=== PATIENT | female | born 1985 | race Caucasian/White ===

== ENCOUNTER → 2017-01-17 | Outpatient (CLI) | payer MEDICAID ==
--- NOTE | 2017-01-17 20:00 | US ---
EXAMINATION TYPE: US OB >= 14 wk fetus DATE OF EXAM: 01/17/2017 COMPARISON: None CLINICAL HISTORY: 31-year-old female with Cramping TECHNIQUE: Transabdominal (TA) FINDINGS: GESTATIONAL AGE / DATING Physician Established: (18 weeks/1 days) EDC: 06/19/16 Dates by LMP: (18 weeks/ 1 days) EDC: 06/19/16 Dates by First Scan: No previous this is first scan ( Dates by Current Scan: (18 weeks/1 days) EDC: 06/19/16 SURVEY IUP: Single PLACENTA: Posterior PREVIA: No Previa VINCE: 12.5 cm CERVICAL LENGTH (transabdominal: norm > 3.0cm): 4.0 cm BIOMETRY PRESENTATION: Breech LIE: Longitudinal BPD: 4.1 cm 18 weeks / 3 days HC: 14.7 cm 17 weeks / 6 days AC: 12.8 cm 18 weeks / 2 days FL: 2.8 cm 18 weeks / 3 days ESTIMATED WEIGHT IN GRAMS: 235 grams ESTIMATED WEIGHT IN LBS/OZ: 0 lbs. 8 oz. WEIGHT PERCENTAGE BASED ON ESTABLISHED DATES: 57% HC/AC: 1.2 FL/AC: 21.8 HEART RATE: 135 bpm RHYTHM: Normal Dry [employer] Operator notes: Placenta shows hypoechoic 3.3 x 1.7 x 2.4, possible chorioangioma. IMPRESSION: 1. Single live intrauterine with estimated gestational age of 18 weeks 1 day by LMP. Curren t ultrasound biometry is exactly concordant, placing the gestation at the 57th percentile for weight. 2. A 3.3 cm focal hypoechoic area within the placenta. A chorioangioma is in the differential. Follow -up as clinically indicated. 3. Complete survey recommended at 18-20 weeks.
== END | disposition home or self-care (01) ==
LOC: RADUSMAIN 14:18
PROVIDERS: ATTEND Family Medicine
DX: O99.89 Other specified diseases and conditions complicating pregnancy, childbirth and the puerperium (principal); R10.2 Pelvic and perineal pain; Z3A.18 18 weeks gestation of pregnancy
CPT/HCPCS: 76805

== ENCOUNTER 2017-03-25 19:13 | Outpatient (CLI) | payer MEDICAID ==
[2017-03-25 19:56] VITALS: BP 129/70; PULSE 93; RESP 16; TEMP 97.3
--- NOTE | 2017-04-22 04:27 | P.MSEPDOC ---
Presenting Problems - Arrival Data Date of Arrival on Unit: 03/25/17 Time of Arrival on Unit: 19:13 Mode of Transport: Ambulatory - Complaint OB-Reason for Admission/Chief Complaint: Rule Out PROM Medical History - Information : 3 Para: 1 Term: 1 : 0 Abortions: Spontaneous or Elective: 1 Number of Living Children: 1 - Gestational Age Gestational Age by DWAYNE (wks/days): 27 Weeks and 5 Days Review of Systems - Review of Systems Constitutional: No problems Breast: No problems ENT: No problems Cardiovascular: No problems Respiratory: No problems Gastrointestinal: No problems Genitourinary: No problems Musculoskeletal: No problems Neurological: No problems Skin: No problems Vital Signs - Temperature Temperature: 97.3 F Temperature Source: Temporal Artery Scan - Pulse Right Pulse Rate: 93 Pulse Assessment Method: Pulse Oximetry - Respirations Respiratory Rate: 16 Oxygen Delivery Method: Room Air O2 Sat by Pulse Oximetry: 99 - Blood Pressure Right Arm Blood Pressure: 129/70 Blood Pressure Mean: 89 Blood Pressure Source: Automatic Cuff Medical Screen Scoring (Pre) - Cervical Exam Dilation: Exam Deferred Effacement: Exam Deferred Membranes: Intact - Uterine Contractions Frequency: N/A Duration: N/A Intensity: N/A - Maternal Vital Signs Maternal Temperature: N/A Maternal Blood Pressure: N/A Signs of Preeclampsia: N/A Maternal Respirations: N/A - Pain Assessment Pain Scale Used: Numeric (1 - 10) Pain Intensity: 0 Pain Management Goal: 0 - Maternal Trauma Maternal Trauma: N/A - Assessment Baseline FHR: 145 Heart Rate - NICHD Category: Category I (Normal) = 0 NST: Reactive Position: N/A Station: N/A - Total Score Total Score (Pre): 0 - Level of Risk Level of Risk: N/A Physician Notification (Pre) - Physician Notified Physician Notified Date: 03/25/17 Physician Notified Time: 19:41 Physician/Practitioner Notifed:: Dr. Roman Spoke With: Dr. Roman New Order Received: No - Notification Comment Comment: Pt cleared for discharge home at this time. Pt to keep next appointment in office and return with any worsening symptoms or other concerns. Disposition - Disposition OB Disposition: Discharge to home Discharge Date: 03/25/17 Discharge Time: 19:44 I agree with the RN Medical Screening Exam: Yes Risk & Benefit of care provided described in d/c instruction: Yes Diagnosis: FALSE LABOR, UNSPECIFIED
== END 2017-03-25 19:44 | disposition home or self-care (01) ==
LOC: FBPOP 19:13
PROVIDERS: ATTEND Obstetrics & Gynecology
DX: O47.9 False labor, unspecified (principal); Z3A.27 27 weeks gestation of pregnancy
CPT/HCPCS: 84112; 99213

== ENCOUNTER 2017-04-14 19:06 | Outpatient (CLI) | payer MEDICAID ==
[2017-04-14 23:15] VITALS: BP 127/60; PULSE 99; RESP 18; TEMP 98.5
--- NOTE | 2017-04-21 11:51 | P.MSEPDOC ---
Presenting Problems - Arrival Data Date of Arrival on Unit: 04/14/17 Time of Arrival on Unit: 19:06 Mode of Transport: Ambulatory - Complaint OB-Reason for Admission/Chief Complaint: Vaginal Bleeding Comment: Comment: pt presents with complaints of spotting for last couple hours at work. downstairs in er as rn. states pinkish mucus when wiping and on pad. noting bright red. nothing saturating pantyliners.denies pain. states called dr office yesterday due to suspected yeast infection and was advised to start monistat 3 day supository course last night. states about 30 min after suppos placed vaginaly had severe burning in vagina. discussed how this can be normal effect with med if tissue is irritated from infection Medical History - Information : 3 Para: 1 Term: 1 : 0 Abortions: Spontaneous or Elective: 1 Number of Living Children: 1 - Gestational Age Gestational Age by DWAYNE (wks/days): 30 Weeks and 4 Days Review of Systems - Review of Systems Constitutional: No problems Breast: No problems ENT: No problems Cardiovascular: No problems Respiratory: No problems Gastrointestinal: No problems Musculoskeletal: No problems Neurological: No problems Skin: No problems Comment: vaginal burning last night, spotting and yeast infection as noted above Vital Signs - Temperature Temperature: 98.5 F Temperature Source: Oral - Pulse Right Pulse Rate: 99 Pulse Assessment Method: Pulse Oximetry - Respirations Respiratory Rate: 18 Oxygen Delivery Method: Room Air O2 Sat by Pulse Oximetry: 99 - Blood Pressure Right Arm Blood Pressure: 127/60 Blood Pressure Mean: 82 Blood Pressure Source: Automatic Cuff Medical Screen Scoring (Pre) - Cervical Exam Dilation: 0 cm = 0 Membranes: Intact - Uterine Contractions Frequency: N/A Duration: N/A Intensity: N/A - Maternal Vital Signs Maternal Temperature: N/A Maternal Blood Pressure: N/A Signs of Preeclampsia: N/A Maternal Respirations: N/A - Pain Assessment Pain Scale Used: Numeric (1 - 10) Pain Intensity: 0 Pain Management Goal: 0 - Maternal Trauma Maternal Trauma: N/A - Assessment Baseline FHR: 140 Heart Rate - NICHD Category: Category I (Normal) = 0 NST: Reactive Position: N/A - Total Score Total Score (Pre): 0 - Level of Risk Level of Risk: Low (0-5) Physician Notification (Pre) - Physician Notified Physician Notified Date: 04/14/17 Physician Notified Time: 20:25 Physician/Practitioner Notifed:: Dr Quinn New Order Received: Yes (dischager if cervix closed) - Notification Comment Comment: cervix determined closed with exam. Disposition - Disposition OB Disposition: Discharge to home Discharge Date: 04/14/17 Discharge Time: 20:45 I agree with the RN Medical Screening Exam: Yes Risk & Benefit of care provided described in d/c instruction: Yes Diagnosis: SPOTTING COMPLICATING , THIRD TRIMESTER
== END 2017-04-14 20:45 | disposition home or self-care (01) ==
LOC: FBPOP 19:06
PROVIDERS: ATTEND Obstetrics & Gynecology
DX: O26.853 Spotting complicating pregnancy, third trimester (principal); Z3A.30 30 weeks gestation of pregnancy
CPT/HCPCS: 59025; 99213

== ENCOUNTER 2017-06-11 03:35 | Inpatient (IN) | payer MEDICAID ==
[2017-06-11] MEDS ORDERED: CARBOPROST TROMETHAMINE 250 MCG/ML 1 ML AMP IM PRN (03:49)
[2017-06-11] MEDS ORDERED: OXYTOCIN 10 UNIT/ML 1 ML VIAL IM PRN (03:49)
[2017-06-11] MEDS ORDERED: LIDOCAINE 1% (PF) 10 MG/ML (30 ML SDV) SQ PRN (03:49)
[2017-06-11] MEDS ORDERED: TERBUTALINE 1 MG/ML VIAL SQ PRN (03:49)
[2017-06-11] MEDS ORDERED: METHYLERGONOVINE 0.2 MG/ML 1 ML AMP IM PRN (03:49)
[2017-06-11] MEDS ORDERED: BUTORPHANOL 1 MG/ML 1 ML VIAL IV PRN (03:54)
[2017-06-11] MEDS ORDERED: LACTATED RINGERS 1,000 ML IV SCH (04:00)
[2017-06-11 04:22] VITALS: BMI 28.5
[2017-06-11] MEDS: LACTATED RINGERS 1,000 ML IV SCH ×3 (04:26→06:19)
[2017-06-11 04:28] LABS: Basophils # (A) 0.1 k/uL (0-0.2); Basophils % (A) 1 %; Eosinophils # (A) 0.1 k/uL (0-0.7); Eosinophils % (A) 1 %; HCT 42.2 % (34.0-46.0); HGB 13.6 gm/dL (11.4-16.0); Lymphocytes # (A) 2.2 k/uL (1.0-4.8); Lymphocytes % (A) 21 %; MCH 29.3 pg (25.0-35.0); MCHC 32.3 g/dL (31.0-37.0); MCV 90.7 fL (80.0-100.0); Mean Platelet Volume 7.4; Monocytes # (A) 0.5 k/uL (0-1.0); Monocytes % (A) 5 %; Neutrophils # (A) 7.4 k/uL (1.3-7.7); Neutrophils % (A) 71 %; Platelet Count 224 k/uL (150-450); RBC 4.65 m/uL (3.80-5.40); RDW 14.2 % (11.5-15.5); WBC 10.4 k/uL (3.8-10.6)
[2017-06-11] MEDS ORDERED: fentaNYL (PF) 50 MCG/ML 5 ML AMP ONE (05:30)
[2017-06-11] MEDS ORDERED: SODIUM CHLORIDE 0.9% 100 ML BAG ONE (05:30)
[2017-06-11] MEDS ORDERED: BUPIVACAINE (PF) 0.25% 30 ML VIAL ONE (05:30)
[2017-06-11] MEDS ORDERED: BUPIVACAINE (PF) 0.25% 25 ML, fentaNYL (PF) 200 MCG in SODIUM CHLORIDE 0.9% 71 ML EPIDURAL ONE (06:21)
--- NOTE | 2017-06-11 08:41 | P.HPOB ---
History of Present Illness H&P Date: 06/11/17 Chief Complaint: IUP at 38-6/7 weeks, active labor, spontaneous rupture of membranes This is a 32-year-old 2 para 1001 at 38-6/7 weeks with an estimated date of confinement of 06/23/2017. Patient presented to labor and delivery with complaints of rupture of membranes clear fluid, at 2:30 this morning. On initial cervical exam she was 2-3 cm dilated. She does desire an epidural. blood work showed a blood type of A-, rubella immune, hepatitis B surface antigen negative, group beta strep negative, HIV negative, RPR nonreactive. Review of Systems Constitutional: Denies fatigue, Denies fever Respiratory: Denies cough Gastrointestinal: Denies constipation, Denies diarrhea Genitourinary: Reports Past Medical History Past Medical History: No Reported History Additional Past Medical History / Comment(s): hypoglycemia, miscarriage-still bleeding,spotting History of Any Multi-Drug Resistant Organisms: None Reported Past Surgical History: Orthopedic Surgery Additional Past Surgical History / Comment(s): bunionectomy, ganglion cyst removed, nasal surg. Past Anesthesia/Blood Transfusion Reactions: No Reported Reaction Past Psychological History: Depression Smoking Status: Never smoker Past Alcohol Use History: Rare Past Drug Use History: None Reported - Past Family History Mother Family Medical History: Cancer Additional Family Medical History / Comment(s): CERVICAL Medications and Allergies Home Medications Medication Instructions Recorded Confirmed Type Pnv 11/Iron Fum/Folic Acid/Om3 1 dose PO DAILY 03/25/17 06/11/17 History [Virt-Jake Dha Softgel] Allergies Allergy/AdvReac Type Severity Reaction Status Date / Time No Known Allergies Allergy Verified 06/11/17 03:40 Exam Osteopathic Statement: *. No significant issues noted on an osteopathic structural exam other than those noted in the History and Physical/Consult. - Vital Signs Vital signs: Vital Signs Temp Pulse Resp BP Pulse Ox 06/11/17 04:19 97.9 F 94 16 138/93 98 06/11/17 03:40 97.9 F 94 16 138/93 98 Intake and Output 06/10/17 06/11/17 06/11/17 22:59 06:59 14:59 Intake Total 1999 Balance 1999 Intake: Intake, IV Titration 2000 Amount Lactated Ringers 1,000 ml 2000 @ 125 mls/hr IV .Q8H [facility] Rx#:[id number] Other: # Voids 1 Weight 70.76 kg - OBG Physical Exam Cervix: 2-80-2 Uterus: enlarged Results Result Diagrams: 06/11/17 04:13 Assessment and Plan (1) Term Narrative/Plan: Patient admitted to Labor and Delivery, expectant management, epidural when appropriate Current Visit: Yes Status: Acute Code(s): Z34.80 - ENCOUNTER FOR SUPRVSN OF NORMAL , UNSP TRIMESTER SNOMED Code(s): 75182960 (2) SROM (spontaneous rupture of membranes) Current Visit: Yes Status: Acute Code(s): YOL7435 - SNOMED Code(s): 352529346 (3) Rh negative status during Current Visit: Yes Status: Acute Code(s): O09.899 - SUPERVISION OF OTHER HIGH RISK PREGNANCIES, UNSP TRIMESTER; Z67.91 - UNSPECIFIED BLOOD TYPE, RH NEGATIVE SNOMED Code(s): 399426518
--- NOTE | 2017-06-11 08:48 | P.PROBDLV ---
Vaginal Delivery Note - . Vaginal Delivery Note: This is a 32-year-old 2 para 1001 at 38-6/7 weeks presented to labor and delivery with spontaneous rupture of membranes, clear. She was 2-3 cm on admission. She progressed through labor eventually getting an epidural. She became complete and had a spontaneous vaginal delivery of a viable female at 814, weight of 8 lbs. 11 oz., Apgars of 9 and 9 at one and 5 minutes respectively. Patient progressed to complete began pushing, head was noted to be and the head was delivered gently followed by the the anterior/ posterior shoulder. The infant was then placed on the maternal abdomen. A spontaneous was cry was noted at delivery Of note after the head was delivered a large clot was noted question partial abruption at some point during labor. The cord was then doubly clamped and cut and cord blood was taken secondary to her Rh- status. The placenta was then delivered spontaneously intact with a three-vessel cord noted. On inspection of the patient's vaginal vault a second-degree midline laceration was noted this was repaired in the usual fashion with 3-0 Rapide. Afterwards a rectal exam which revealed normal tone and no rectal injury. Estimated blood loss during delivery was approximately 300 mL. Mom and infant tolerated delivery well and are resting comfortably.
[2017-06-11] MEDS ORDERED: ACETAMINOPHEN TAB 325 MG TAB PO PRN (08:49)
[2017-06-11] MEDS ORDERED: BENZOCAINE/MENTHOL SPRAY 1 GM/SPRAY AEROSOL TOPICAL PRN (08:49)
[2017-06-11] MEDS ORDERED: WITCH HAZEL 1 EACH MED..PAD TOPICAL PRN (08:49)
[2017-06-11] MEDS ORDERED: Acetaminophen-Codeine 300-30mg TAB PO PRN ×2 (08:49)
[2017-06-11] MEDS ORDERED: ZOLPIDEM 5 MG TAB PO PRN (08:49)
[2017-06-11] MEDS ORDERED: diphenhydrAMINE 50 MG CAP PO PRN (08:49)
[2017-06-11] MEDS ORDERED: SIMETHICONE 80 MG CHEWABLE PO PRN (08:49)
[2017-06-11] MEDS ORDERED: diphenhydrAMINE 25 MG CAP PO PRN (08:49)
[2017-06-11] MEDS ORDERED: LANOLIN CREAM 5 GM TUBE TOPICAL PRN (08:49)
[2017-06-11] MEDS ORDERED: HYDROCORTISONE 2.5% RECTAL CREAM 30 GM TUBE RECTAL PRN (08:49)
[2017-06-11] MEDS ORDERED: diphenhydrAMINE 50 MG/ML 1 ML VIAL IVP PRN ×2 (08:49)
[2017-06-11] MEDS ORDERED: OXYTOCIN 20 UNITS/1000 ML NS 1,000 ML IV SCH (09:00)
[2017-06-11] MEDS ORDERED: PRENATAL VIT-IRON-FOLIC ACID 1 EACH CAP PO SCH (12:00)
[2017-06-11] MEDS: IBUPROFEN 600 MG TAB PO PRN ×2 (12:07→20:34)
[2017-06-11] MEDS: SENNOSIDES-DOCUSATE SODIUM 1 EACH TAB PO SCH (20:34)
[2017-06-11 21:09] VITALS: RESP 18
[2017-06-12 08:38] VITALS: BP 103/70; PULSE 77; TEMP 98.2
--- NOTE | 2017-06-12 08:50 | P.DS ---
Providers Date of admission: 06/11/17 03:46 Expected date of discharge: 06/12/17 Attending physician: Ben Quinn Primary care physician: Stated None Hospital Course: The patient is a 32-year-old 2 para 1001 admitted at 38-6/7 weeks by good dating parameters. She is admitted in early labor with all signs reassuring having had spontaneous rupture of membranes of clear fluid. She has had an uncomplicated and is otherwise known to have an blood type of A -. She did receive RhoGAM at 28 weeks. On labor and delivery, she had an epidural catheter placed for analgesia and then progressed to complete and pushed to a normal spontaneous vaginal delivery of a viable 8 lbs. 11 oz. baby girl with Apgars of 9 at 1 minute and 9 at 5 minutes. Her course was unremarkable with vital signs remaining stable and her temperature was afebrile throughout. She was deemed stable for discharge on day #1 and was discharged home to follow-up in the office in 6 weeks' time routinely. Discharge instructions included calling for any significantly increased bleeding or foul-smelling lochia, significantly increased fever or abdominal pain, perineal complaints, breast complaints, or anything else that concerned her. She was additionally instructed to have nothing in the vagina to include intercourse for at least 6 weeks time. She understood her instructions and agrees follow up as noted above. Discharge medications included continued vitamins as she has opted to breast-feed perches otherwise to continue to use [id number]-[id number] analgesic pain medications as needed. Maternal blood type is A- and cord blood was sent for evaluation for the necessity of RhoGAM prior to discharge. Rubella status is immune. Procedures: #1. Epidural analgesia #2. Normal spontaneous vaginal delivery #3. Repair of perineal laceration Patient Condition at Discharge: Good Plan - Discharge Summary New Discharge Prescriptions: No Action Pnv 11/Iron Fum/Folic Acid/Om3 [Virt-Jake Dha Softgel] 1 dose PO DAILY Discharge Medication List Pnv 11/Iron Fum/Folic Acid/Om3 [Virt-Jake Dha Softgel] 1 dose PO DAILY 03/25/17 [History] Follow up Appointment(s)/Referral(s): Ben Quinn MD [STAFF PHYSICIAN] - 6 Weeks Discharge Disposition: HOME SELF-CARE
[2017-06-12] MEDS: SENNOSIDES-DOCUSATE SODIUM 1 EACH TAB PO SCH (11:31)
== END 2017-06-12 13:50 | disposition home or self-care (01) | DRG 775 ==
LOC: FBPOP 03:35 → 4FBP 03:46
PROVIDERS: ADMIT Obstetrics & Gynecology Obstetrics; ATTEND Obstetrics & Gynecology
PROC: 10E0XZZ Delivery of Products of Conception, External Approach (ICD-10-PCS; principal; 2017-06-11)
PROC: 0KQM0ZZ Repair Perineum Muscle, Open Approach (ICD-10-PCS; 2017-06-11)
PROC: 00HU33Z Insertion of Infusion Device into Spinal Canal, Percutaneous Approach (ICD-10-PCS; 2017-06-11)
PROC: 3E0R3NZ Introduction of Analgesics, Hypnotics, Sedatives into Spinal Canal, Percutaneous Approach (ICD-10-PCS; 2017-06-11)
DX: O26.893 Other specified pregnancy related conditions, third trimester (principal); Z37.0 Single live birth; O70.1 Second degree perineal laceration during delivery; Z3A.38 38 weeks gestation of pregnancy; Z67.91 Unspecified blood type, Rh negative
CPT/HCPCS: 59025; 85025; 88307; 99213

== ENCOUNTER → 2018-07-19 | Outpatient (CLI) | payer BC, MEDICAID ==
--- NOTE | 2018-07-19 13:34 | US ---
EXAMINATION TYPE: Transabdominal DATE OF EXAM: 07/19/2018 1:16 PM COMPARISON: NONE CLINICAL HISTORY: O46.91 Antepartum hemorrhage, first trimester. EXAM PERFORMED: Transabdominal (TA) EXAM MEASUREMENTS: GESTATIONAL AGE / DATING Physician Established: Not yet established Dates by LMP: (11 weeks/4 days) EDC: 02/03/19 Dates by First Scan: No previous this is first scan Dates by Current Scan for: (11 weeks/5 days) EDC: 02/02/19 MATERNAL ANATOMY Uterus: 15.6 x 10.7 x 4.5cm Right Ovary: 2.1 x 1.7 x 1.3cm Left Ovary: not visualized due to overlying bowel and increased uterine size Post CDS / Adnexa: wnl Presence of free fluid: no Presence of subchorionic bleed: no GESTATION / SURVEY CRL: 4.9 (11 weeks/5 days) Yolk Sac (normal less than 6mm): 4mm Heart Rate: 166 bpm Rhythm: Normal IUP: Viable IUP Date of LMP: 04/29/18 Beta HcG (if available): Not available at this time Single live intrauterine gestation is seen as gestational sac, yolk sac, and pole are present. No free fluid is seen in pelvic cul-de-sac. Right ovary is seen with some peripheral follicles. Left ovary is not clearly identified. No suspicio us extraovarian adnexal lesions are seen on images saved. IMPRESSION: Single live intrauterine gestation is confirmed, mean crown-rump length is 4.9 cm corresponding to 11 week 5 day old fetus.
== END ==
LOC: RADUSWWP 12:52
PROVIDERS: ATTEND Obstetrics & Gynecology
DX: O20.9 Hemorrhage in early pregnancy, unspecified (principal); Z3A.11 11 weeks gestation of pregnancy
CPT/HCPCS: 76801

== ENCOUNTER 2018-11-28 15:47 | Outpatient (CLI) | payer BC ==
[2018-11-28] MEDS ORDERED: ACETAMINOPHEN IV (For NPO) 1,000 MG in EMPTY BAG 1 BAG IVPB STA (16:23)
[2018-11-28] MEDS ORDERED: LACTATED RINGERS 1,000 ML IV ONE (16:30)
[2018-11-28 17:36] VITALS: BP 126/61; PULSE 85; RESP 16; TEMP 97.3
--- NOTE | 2018-12-16 14:06 | P.MSEPDOC ---
Presenting Problems - Arrival Data Date of Arrival on Unit: 11/28/18 Time of Arrival on Unit: 15:47 Mode of Transport: Ambulatory - Complaint OB-Reason for Admission/Chief Complaint: Pain Comment: Mid back pain Medical History - Information : 3 Para: 2 Term: 2 : 0 Abortions: Spontaneous or Elective: 0 Number of Living Children: 2 - Gestational Age Gestational Age by DWAYNE (wks/days): 30 Weeks and 3 Days Review of Systems - Review of Systems Constitutional: No problems Breast: No problems ENT: No problems Cardiovascular: No problems Respiratory: No problems Gastrointestinal: No problems Genitourinary: No problems Musculoskeletal: No problems Neurological: No problems Skin: No problems Comment: Back pain after pushing cart to ICU while working yesterday Vital Signs - Temperature Temperature: 97.3 F Temperature Source: Temporal Artery Scan - Pulse Right Sitting Brachial Pulse Rate: 85 Pulse Assessment Method: Automatic Cuff - Respirations Respiratory Rate: 16 Oxygen Delivery Method: Room Air O2 Sat by Pulse Oximetry: 98 - Blood Pressure Right Arm Sitting Blood Pressure: 126/61 Blood Pressure Mean: 82 Blood Pressure Source: Automatic Cuff Medical Screen Scoring (Pre) - Cervical Exam Dilation: 0 cm = 0 Effacement: Exam Deferred Membranes: Intact - Uterine Contractions Frequency: N/A Duration: N/A Intensity: N/A - Maternal Vital Signs Maternal Temperature: N/A Maternal Blood Pressure: N/A Signs of Preeclampsia: N/A Maternal Respirations: N/A - Maternal Trauma Maternal Trauma: N/A - Assessment - Baby A Baseline FHR: 130 Heart Rate - NICHD Category: Category I (Normal) = 0 NST: Reactive Position: N/A Station: N/A - Total Score - Baby A Total Score - Baby A: 0 - Total Score - Baby B Total Score - Baby B: 0 - Total Score - Baby C Total Score - Baby C: 0 - Level of Risk - Baby A Level of Risk - Baby A: Low (0-5) - Level of Risk - Baby B Level of Risk - Baby B: Low (0-5) - Level of Risk - Baby C Level of Risk - Baby C: Low (0-5) Physician Notification (Pre) - Physician Notified Physician Notified Date: 11/28/18 Physician Notified Time: 16:40 Physician/Practitioner Notifed:: Gordon Spoke With: Tremp New Order Received: Yes - Notification Comment Comment: Orders rec'd to provide LR fluid, Ofirmev, check cervix and collect FFN. Pt refused Ofirmev, SVE performed, reactive NST. Pt may be d/c home. Disposition - Disposition OB Disposition: Discharge to home, Written follow up instructions reviewed Discharge Date: 11/28/18 Discharge Time: 17:30 I agree with the RN Medical Screening Exam: Yes Risk & Benefit of care provided described in d/c instruction: Yes Diagnosis: LOW BACK PAIN
== END 2018-11-28 17:30 | disposition home or self-care (01) ==
LOC: FBPOP 15:47
PROVIDERS: ATTEND Obstetrics & Gynecology Obstetrics
DX: O99.89 Other specified diseases and conditions complicating pregnancy, childbirth and the puerperium (principal); M54.5 Low back pain; Z3A.30 30 weeks gestation of pregnancy
CPT/HCPCS: 59025; 96360; 99213; 99214

== ENCOUNTER 2019-01-26 12:20 | Inpatient (IN) | payer BC ==
[2019-01-26] MEDS ORDERED: OXYTOCIN 10 UNIT/ML 1 ML VIAL IM PRN (12:36)
[2019-01-26] MEDS ORDERED: METHYLERGONOVINE 0.2 MG/ML 1 ML AMP IM PRN (12:36)
[2019-01-26] MEDS ORDERED: CARBOPROST TROMETHAMINE 250 MCG/ML 1 ML AMP IM PRN (12:36)
[2019-01-26] MEDS ORDERED: LIDOCAINE 0.5% (PF) 5 MG/ML (50 ML SDV) SQ PRN (12:36)
[2019-01-26] MEDS ORDERED: TERBUTALINE 1 MG/ML VIAL SQ PRN (12:36)
[2019-01-26] MEDS: LACTATED RINGERS 1,000 ML IV SCH ×2 (13:02→13:31)
[2019-01-26 13:12] LABS: Basophils # (A) 0.1 k/uL (0-0.2); Basophils % (A) 1 %; Eosinophils # (A) 0.1 k/uL (0-0.7); Eosinophils % (A) 1 %; HCT 40.7 % (34.0-46.0); HGB 13.5 gm/dL (11.4-16.0); Lymphocytes # (A) 1.7 k/uL (1.0-4.8); Lymphocytes % (A) 14 %; MCH 30.4 pg (25.0-35.0); MCHC 33.2 g/dL (31.0-37.0); MCV 91.5 fL (80.0-100.0); Mean Platelet Volume 7.8; Monocytes # (A) 0.4 k/uL (0-1.0); Monocytes % (A) 4 %; Neutrophils # (A) 9.2 k/uL (1.3-7.7); Neutrophils % (A) 79 %; Platelet Count 222 k/uL (150-450); RBC 4.44 m/uL (3.80-5.40); RDW 13.4 % (11.5-15.5); WBC 11.7 k/uL (3.8-10.6)
[2019-01-26] MEDS ORDERED: ROPIVACAINE 5MG/ML 20ML VIAL ONE (13:28)
[2019-01-26] MEDS ORDERED: fentaNYL (PF) 50 MCG/ML 5 ML AMP ONE (13:28)
[2019-01-26] MEDS ORDERED: SODIUM CHLORIDE 0.9% 100 ML BAG ONE (13:28)
--- NOTE | 2019-01-26 14:04 | P.HPOB ---
History of Present Illness H&P Date: 01/26/19 Chief Complaint: 38-6/7 weeks, active labor The patient is a 33-year-old 3 para 2011 admitted at 38-6/7 weeks as established by last menstrual period and confirmed by seven-week ultrasound. She is admitted in early active labor with all signs reassuring. Her has been uncomplicated. She is Rh- and received RhoGAM at 28 weeks. Serial ultrasounds have demonstrated the fetus greater than the 90th percentile, most recently at the 92nd percentile at 35 weeks. Group B strep status is negative. Obstetrical history: 3 para 2012 with current statistics listed in history present illness. EDC of 02/03/2019 was established by last menstrual period and confirmed by seven-week ultrasound. Laboratory workup done traits of blood type of A- with a negative antibody screen. Rubella status is immune. The remainder of the laboratory workup was within normal limits. She did undergo early trisomy testing which was negative. One hour Glucola was normal and group B strep status is negative. Gynecologic history: Unremarkable with no history of any infections to include STDs. Review of Systems Review of systems is confined to history of present illness. Past Medical History Past Medical History: No Reported History Additional Past Medical History / Comment(s): hypoglycemia, miscarriage-still bleeding,spotting History of Any Multi-Drug Resistant Organisms: None Reported Past Surgical History: Orthopedic Surgery Additional Past Surgical History / Comment(s): bunionectomy, ganglion cyst removed, nasal surg. Past Anesthesia/Blood Transfusion Reactions: No Reported Reaction Smoking Status: Never smoker - Past Family History Mother Family Medical History: Cancer Additional Family Medical History / Comment(s): CERVICAL Medications and Allergies Home Medications Medication Instructions Recorded Confirmed Type RX: Pnv 11/Iron Fum/Folic Acid/Om3 1 dose PO DAILY 03/25/17 01/26/19 History [Virt-Jake Dha Softgel] Allergies Allergy/AdvReac Type Severity Reaction Status Date / Time No Known Allergies Allergy Verified 11/28/18 16:05 Exam Intake and Output 01/25/19 01/26/19 01/26/19 22:59 06:59 14:59 Other: Weight 73.028 kg In general, this is a well-developed, well-nourished white female in no acute distress. Her heart has a regular rhythm and rate without murmur. Her lungs are clear to auscultation bilaterally in all [place]. Her abdomen is gravid, nondistended, has normal active bowel sounds, is soft, nontender, and without any palpable masses aside from uterine fundus. Her extremities are without any cyanosis, clubbing, or significant edema and are nontender to palpation bilaterally. Digital cervical examination demonstrates her cervix to be 57 m dilated, 80% effaced, with the vertex in presentation at -2 station. Results Result Diagrams: 01/26/19 13:04 Abnormal Lab Results - Last 24 Hours (Table) 01/26/19 Range/Units 13:04 WBC 11.7 H (3.8-10.6) k/uL Neutrophils # 9.2 H (1.3-7.7) k/uL Assessment and Plan (1) Active labor at term Current Visit: Yes Status: Acute Code(s): [id number] - SNOMED Code(s): 99849603 Plan: The patient is admitted for active management of labor. An epidural catheter is in place for analgesia. She will have close maternal and surveillance and expectant management will be practiced. She will shortly undergo artificial rupture of membranes.
[2019-01-26 14:43] VITALS: BMI 29.4
[2019-01-26] MEDS ORDERED: diphenhydrAMINE 25 MG CAP PO PRN (15:57)
[2019-01-26] MEDS ORDERED: diphenhydrAMINE 50 MG/ML 1 ML VIAL IVP PRN ×2 (15:57)
[2019-01-26] MEDS ORDERED: ZOLPIDEM 5 MG TAB PO PRN (15:57)
[2019-01-26] MEDS ORDERED: HYDROcodone/APAP 7.5-325MG 1 EACH TAB PO PRN (15:57)
[2019-01-26] MEDS ORDERED: SIMETHICONE 80 MG CHEWABLE PO PRN (15:57)
[2019-01-26] MEDS ORDERED: LANOLIN CREAM 5 GM TUBE TOPICAL PRN (15:57)
[2019-01-26] MEDS ORDERED: HYDROCORTISONE 2.5% RECTAL CREAM 30 GM TUBE RECTAL PRN (15:57)
[2019-01-26] MEDS ORDERED: WITCH HAZEL 1 EACH MED..PAD TOPICAL PRN (15:57)
[2019-01-26] MEDS ORDERED: HYDROcodone/APAP 5-325MG 1 EACH TAB PO PRN (15:57)
[2019-01-26] MEDS ORDERED: diphenhydrAMINE 50 MG CAP PO PRN (15:57)
[2019-01-26] MEDS ORDERED: ACETAMINOPHEN TAB 325 MG TAB PO PRN (15:57)
[2019-01-26] MEDS ORDERED: BENZOCAINE/MENTHOL SPRAY 1 GM/SPRAY AEROSOL TOPICAL PRN (15:57)
[2019-01-26] MEDS ORDERED: OXYTOCIN 20 UNITS/1000 ML NS 1,000 ML IV SCH (16:00)
--- NOTE | 2019-01-26 16:02 | P.PROBDLV ---
Vaginal Delivery Note - . Vaginal Delivery Note: The patient is a 33-year-old 4 para 2012Admitted at 38-6/7 weeks by good dating parameters. She is admitted in early active labor with all signs reassuring. Her has been entirely uncomplicated. She is Rh- and received RhoGAM at 28 weeks. She is also group B strep negative. On labor and delivery, she had an epidural catheter placed for analgesia and then underwent artificial rupture of membranes for clear fluid. She made fairly quick progress through the active phase of labor to complete and +2 station. She pushed over the course of 1 contraction to a normal spontaneous vaginal delivery of a viable 9 lbs. 7 oz. baby boy with Apgars of 8 at 1 minute and 8 at 5 minutes delivered in the left occiput anterior position. There was a loose nuchal cord 1 which was reduced following delivery of the baby. The placenta was delivered spontaneously, intact, and grossly normal with a grossly normal three-vessel cord inserted approximately 4 cm from the margin of the placental disc. There was a small second-degree midline laceration over the site of a previous laceration which was repaired in standard fashion using 3-0 chromic catgut without difficulty. Estimated blood loss for the entire case was approximately 200 mL. There were no complications. All sponge, instrument, and needle counts were correct. Both mother and are resting comfortably in recovery.
[2019-01-26] MEDS: IBUPROFEN 600 MG TAB PO PRN (23:33)
[2019-01-27] MEDS: SENNOSIDES-DOCUSATE SODIUM 1 EACH TAB PO SCH ×3 (00:04→20:59)
[2019-01-27 06:40] LABS: Basophils % (A) 0 %; Eosinophils # (A) 0.2 k/uL (0-0.7); Eosinophils % (A) 2 %; HCT 37.8 % (34.0-46.0); HGB 12.4 gm/dL (11.4-16.0); Lymphocytes # (A) 1.7 k/uL (1.0-4.8); Lymphocytes % (A) 16 %; MCH 30.5 pg (25.0-35.0); MCHC 32.7 g/dL (31.0-37.0); MCV 93.2 fL (80.0-100.0); Mean Platelet Volume 7.4; Monocytes # (A) 0.5 k/uL (0-1.0); Monocytes % (A) 5 %; Neutrophils # (A) 7.8 k/uL (1.3-7.7); Neutrophils % (A) 75 %; Platelet Count 174 k/uL (150-450); RBC 4.06 m/uL (3.80-5.40); RDW 13.6 % (11.5-15.5); WBC 10.3 k/uL (3.8-10.6)
--- NOTE | 2019-01-27 11:01 | P.PNOBGVD ---
Subjective - Subjective Patient reports: Reports appetite normal, Reports voiding normally, Reports pain well controlled, Reports ambulating normally : doing well, nursing well Objective - Latest Vital Signs Latest vital signs: Vital Signs Temp Pulse Resp BP Pulse Ox 01/27/19 08:00 97.9 F 68 18 125/70 01/27/19 00:00 98.3 F 69 14 116/59 01/26/19 20:00 98.8 F 68 16 125/69 01/26/19 17:55 98.3 F 74 18 135/78 01/26/19 17:25 97.9 F 76 18 129/58 01/26/19 16:55 79 126/59 01/26/19 16:40 97.4 F L 68 18 125/69 01/26/19 16:25 71 121/71 01/26/19 16:10 99.0 F 63 18 118/59 01/26/19 15:55 97.7 F 75 18 121/56 01/26/19 13:01 98.2 F 77 18 116/75 99 Intake and Output 01/26/19 01/27/19 01/27/19 22:59 06:59 14:59 Other: # Voids 1 2 - Exam Extremities: Present: normal Abdomen: Present: normal appearance, soft Uterus: Present: normal, firm (The uterine fundus is tonic and nontender below the umbilicus.) - Labs Labs: Abnormal Lab Results - Last 24 Hours (Table) 01/26/19 01/27/19 Range/Units 13:04 06:25 WBC 11.7 H (3.8-10.6) k/uL Neutrophils # 9.2 H 7.8 H (1.3-7.7) k/uL Assessment and Plan (1) Active labor at term Current Visit: Yes Status: Acute Code(s): [id number] - SNOMED Code(s): 88568385 (2) Normal spontaneous vaginal delivery Current Visit: Yes Status: Acute Code(s): O80 - ENCOUNTER FOR FULL-TERM UNCOMPLICATED DELIVERY SNOMED Code(s): 08205384 Plan: Continue with routine care. The infant is being held for an additional 24 hours secondary to a fever and elevated white count. Anticipate discharge home tomorrow pending no maternal complications.
[2019-01-27] MEDS: IBUPROFEN 600 MG TAB PO PRN (14:12)
[2019-01-27 23:45] VITALS: PULSE 69
[2019-01-28 08:53] VITALS: BP 120/69; RESP 18; TEMP 98.2
[2019-01-28] MEDS: SENNOSIDES-DOCUSATE SODIUM 1 EACH TAB PO SCH (09:04)
--- NOTE | 2019-01-28 09:19 | P.DS ---
Providers Date of admission: 01/26/19 12:40 Expected date of discharge: 01/28/19 Attending physician: Ben Quinn Primary care physician: Stated None - Discharge Diagnosis(es) (1) Active labor at term Current Visit: Yes Status: Acute (2) Normal spontaneous vaginal delivery Current Visit: Yes Status: Acute Hospital Course: The patient is a 33-year-old 3 para 2011 admitted at 38-6/7 weeks by good dating parameters. She is admitted in active labor with all signs reassuring. Her was on, Alesha aside from estimated weight and large for gestational age category. Group B strep status is negative. She was Rh- and received RhoGAM at 28 weeks. On labor and delivery, she had an epidural catheter placed and underwent artificial rupture of membranes for clear fluid. She made fairly quick progress through the active phase of labor to complete and then pushed quickly to a normal spontaneous vaginal delivery of a 9 lbs. 7 oz. baby boy with Apgars of 8 at 1 minute and 8 at 5 minute. Her course was unremarkable with vital signs or any stable and her temperature was afebrile throughout. Her infant was kept in the hospital for 48 hours secondary to initial elevated white count and fever. The patient was deemed stable for discharge therefore day #2 was discharged home to follow-up in the office in 6 weeks' time routinely. Discharge instructions included calling for any significantly increased bleeding or foul-smelling lochia, significantly increased fever abdominal pain, perineal complaints, breast complaints, or anything else that concerned her. She was additionally instructed to have nothing in the vagina for at least 6 weeks time to include intercourse. She understood her instructions and agrees to follow up as noted above. Discharge medications included continued vitamins as she has opted to breast- feed. She is otherwise to use [id number] analgesic pain medications as needed. Maternal blood type is A- and cord blood was sent for evaluation for the necessity of RhoGAM prior to discharge. Rubella status is immune. Procedures: #1. Epidural analgesia #2. Artificial rupture of membranes #3. Normal spontaneous vaginal delivery #4. Repair of perineal laceration Patient Condition at Discharge: Good Plan - Discharge Summary New Discharge Prescriptions: No Action Pnv 11/Iron Fum/Folic Acid/Om3 [Virt-Jake Dha Softgel] 1 dose PO DAILY Discharge Medication List Pnv 11/Iron Fum/Folic Acid/Om3 [Virt-Jake Dha Softgel] 1 dose PO DAILY 03/25/17 [History] Follow up Appointment(s)/Referral(s): Ben Quinn MD [STAFF PHYSICIAN] - 6 Weeks Discharge Disposition: HOME SELF-CARE
== END 2019-01-28 10:40 | disposition home or self-care (01) | DRG 807 ==
LOC: FBPOP 12:20 → 4FBP 12:40
PROVIDERS: ADMIT Obstetrics & Gynecology; ATTEND Obstetrics & Gynecology
PROC: 10E0XZZ Delivery of Products of Conception, External Approach (ICD-10-PCS; principal; 2019-01-26)
PROC: 0KQM0ZZ Repair Perineum Muscle, Open Approach (ICD-10-PCS; 2019-01-26)
PROC: 00HU33Z Insertion of Infusion Device into Spinal Canal, Percutaneous Approach (ICD-10-PCS; 2019-01-26)
PROC: 3E0R3BZ Introduction of Anesthetic Agent into Spinal Canal, Percutaneous Approach (ICD-10-PCS; 2019-01-26)
DX: O36.63X0 Maternal care for excessive fetal growth, third trimester, not applicable or unspecified (principal); Z37.0 Single live birth; O69.81X0 Labor and delivery complicated by cord around neck, without compression, not applicable or unspecified; O26.893 Other specified pregnancy related conditions, third trimester; Z67.11 Type A blood, Rh negative; O70.1 Second degree perineal laceration during delivery; Z3A.38 38 weeks gestation of pregnancy; Z79.899 Other long term (current) drug therapy; Z80.49 Family history of malignant neoplasm of other genital organs; Z98.890 Other specified postprocedural states
CPT/HCPCS: 59025; 85025; 86850; 86870; 86880; 86900; 86901; 99213

== ENCOUNTER → 2022-02-18 | Outpatient (CLI) | payer BC ==
--- NOTE | 2022-02-21 11:03 | MM ---
Reason for Exam: Screening (asymptomatic). Risk Values: Sheryl 5 year model risk: 0.2%. NCI Lifetime model risk: 6.8%. Tissue Density: The breast tissue is heterogeneously dense. This may lower the sensitivity of mammography. Findings: Analyzed By CAD. There is no suspicious group of microcalcifications or suspicious mass in either breast. Overall Assessment: Negative, BI-RAD 1 Management: Screening Mammogram of both breasts in 1 year. A clinical breast exam by your physician is recommended on an annual basis and results should be correlated with mammographic findings. Electronically signed and approved by: Grover Warren D.O.
== END | disposition home or self-care (01) ==
LOC: RADMAMWWP 11:18
PROVIDERS: ATTEND Obstetrics & Gynecology
DX: Z12.31 Encounter for screening mammogram for malignant neoplasm of breast (principal)
CPT/HCPCS: 77063; 77067